=== PATIENT | male | born 1980 | race African-American/Black ===

== ENCOUNTER 2020-12-27 11:03 | Emergency (ER) | payer MEDICAID, SELFPAY ==
[2020-12-27 12:07] VITALS: BP 149/93; PULSE 84; RESP 16; TEMP 36.3; O2SAT 100; BMI 23.9
--- NOTE | 2020-12-27 12:46 | ED_ITS ---
HPI - Skin/Abscess/Foreign Bdy General Chief complaint: Skin/Abscess/Foreign Body Stated complaint: rash on thigh Source: patient Mode of arrival: ambulatory Limitations: no limitations History of Present Illness HPI narrative: Patient presents to ED for itchy rash on groin area. Patient denies any penile discharge MD complaint: rash Related Data Previous Rx's Medication Instructions Recorded clotrimazole 1 % topical cream 1 appl TOPICAL BID 21 Days #90 g 12/27/20 Allergies Allergy/AdvReac Type Severity Reaction Status Date / Time No Known Allergies Allergy Unverified 02/08/20 18:40 [No Known Allergies*] Review of Systems Review of Systems: Yes all other systems are reviewed and are negative Constitutional: Constitutional: Reports as per HPI and Reports no additional constitutional complaints Eyes: Eyes: Reports as per HPI and Reports no additional eye complaints ENT: Reports system reviewed and no additional complaints, except as documented and Reports as per HPI Cardiovascular: Cardiovascular: Reports as per HPI and Reports no additional cardiovascular complaints Respiratory: Respiratory: Reports as per HPI and Reports no additional respiratory complaints Gastrointestinal: Gastrointestinal: Reports as per HPI and Reports no additional gastrointestinal complaints Genitourinary: Genitourinary: Reports no additional male genitourinary complaints Comments: Jock itch Musculoskeletal: Musculoskeletal: Reports no additional musculoskeletal complaints and Reports as per HPI Neurologic: Reports system reviewed and no additional complaints, except as documented and Reports as per HPI Psychiatric: Psychiatric: Reports no additional psychiatric complaints and Reports as per HPI COUNT INCLUDES [facility] Past Medical History Medical History (Updated 12/27/20 @ 12:55 by ALINA Huber) No known health problems Social History Social History Advance Directives: Yes Advance Directives Information Provided: Yes Advance Directives on File: No Physical Exam Vital Signs: Vital Signs: Last Vital Signs Temp 97.4 F 12/27/20 12:07 Pulse 84 12/27/20 12:07 Resp 16 12/27/20 12:07 BP 149/93 H 12/27/20 12:07 Pulse Ox 100 12/27/20 12:07 Body Mass Index 23.9 Const: General: cooperative, healthy appearing, comfortable, no acute distress, well developed, alert, awake and Physically active Orientation/con sciousness: patient oriented x3 HENMT: Head: Yes normal to inspection, Yes No palpable skull fracture present, Yes normocephalic and Yes atraumatic Eyes: General: appearance normal, both eyes and all related structures Neck: Neck: Yes normal visual inspection, Yes full ROM, Yes no lymphadenopathy, Yes no meningeal signs, Yes trachea midline, Yes supple and No tender Chest: Chest palpation & inspection: normal inspection of the chest and normal palpation of entire chest wall Resp: Effort & Inspection: normal respiratory effort and able to speak in complete sentences Auscultation: clear to auscultation bilaterally GI: Inspection: Yes normal to inspection and No abdominal wall ecchymosis Palpation (GI): Soft to palpation, not firm, nontender, no guarding and not rigid : Other: Negative for any penile lesions penile discharge, testicular pain, testicular swelling. General: No CVA tenderness and Yes no CVA tenderness Male genitals images: 1. Positive for dry scaly tinea rash. 2. Positive for dry scaly tinea rash Back/Spine/Pelvis: Back: no CVA tenderness, No CVA tenderness and No back tenderness Skin: General skin exam: no rashes or lesions noted and elasticity normal Neuro: General: patient oriented x3, gait normal, no meningeal signs and CN's II-XI intact bilaterally Cranial nerves: Yes CN's II-XII intact bilaterally Extrem: General: Yes normal to inspection and Yes full ROM Psych: Appearance: grossly normal, well kempt and not disheveled Course Course Course Narrative: Tinea cruris. Reevaluation(s) Reevaluation #1: Patient will be discharged with antifungal. Time: 12:53 MDM - Skin/Abscess/Foreign Bdy MDM Narrative Medical decision making narrative: Tinea cruise Discharge Plan Discharge Clinical Impression: Tinea cruris Patient Disposition: Home, Self-Care Instructions: Andrea Marinelli (ED) Additional Instructions: You be discharged with antifungal cream. Please follow-up with the PCP. Return to ED for any penile lesions, penile discharge, testicular pain, testicular swelling, redness, abdominal pain, nausea, vomiting, fever, chills, any other concerning symptoms. Prescriptions: New clotrimazole 1 % cream 1 appl topical BID 21 Days Qty: 90 RF: 0 Print Language: Welsh
== END 2020-12-27 13:00 | disposition home or self-care (01) ==
PROVIDERS: Emergency Provider Emergency Medicine; PCP Internal Medicine
DX: B35.6 Tinea cruris (principal)
CPT/HCPCS: 99283

== ENCOUNTER 2021-07-31 11:37 | Outpatient (REF) | payer MEDICAID, SELFPAY ==
--- NOTE | ~2021-07-31 | XR_ITS ---
EXAMINATION: XR WRIST, LEFT CLINICAL INFORMATION: Left wrist pain. COMPARISON: None TECHNIQUE: PA, lateral, oblique, and scaphoid views of the left wrist. FINDINGS: The bones and soft tissues are normal. No fracture. Alignment is anatomic with normal joint spaces. No erosions or abnormal soft tissue calcifications. XR/XR wrist LT min 3V IMPRESSION: Unremarkable examination.
== END 2021-07-31 11:38 | disposition home or self-care (01) ==
LOC: HO.XRAY 11:37
PROVIDERS: PCP Registered Nurse Community Health; Visit Provider Registered Nurse Community Health
DX: M25.532 Pain in left wrist (principal)
CPT/HCPCS: 73110